=== PATIENT | male | born 1970 | race Caucasian/White ===

== ENCOUNTER 2022-08-27 11:08 | Inpatient (IN) | payer OTHER ==
[2022-08-27 11:16] VITALS: BMI 26.6
[2022-08-27] MEDS ORDERED: SODIUM CHLORIDE 0.9% 500 ML INFUS.BAG IV ONE (12:28)
[2022-08-27] MEDS ORDERED: ACETAMINOPHEN 1000 MG/100 ML BAG IVPB ONE (12:28)
[2022-08-27] MEDS ORDERED: FAMOTIDINE 20 MG/50 ML IVPB 20 MG/50 ML MG IVPB ONE (12:28)
[2022-08-27] MEDS ORDERED: ACETAMINOPHEN INJECTION 100 ML IVPB ONE ×2 (12:35→20:44)
[2022-08-27] MEDS ORDERED: FAMOTIDINE 10 MG/ML VIAL IVPB ONE (12:35)
[2022-08-27 12:52] LABS: BASO % 0.4 % (0-2.0); EOS % 1.6 % (0-4.5); HEMATOCRIT 42.7 % (35.4-49); HEMOGLOBIN 14.7 GM/dL (11.7-16.9); LYMPH % 29.2 % (8-40); MCH 30.1 pg (25.7-33.7); MCHC 34.3 g/dl (32.0-35.9); MEAN CELL VOLUME 87.7 fl (80-96); MEAN PLT VOLUME 10.7 fl (7.5-11.1); MONO % 8.6 % (3.8-10.2); NEUT % 60.2 % (42.8-82.8); PLATELET COUNT 184 10^3/uL (134-434); RBC 4.87 M/mm3 (4.00-5.60); RDW 12.9 % (11.9-15.9); WHITE BLOOD COUNT 6.8 K/mm3 (4.0-10.0)
[2022-08-27 12:54] LABS: URINE APPEARANCE CLEAR; URINE BILIRUBIN NEGATIVE (NEGATIVE); URINE COLOR YELLOW; URINE GLUCOSE (UA) NEGATIVE (NEGATIVE); URINE KETONE NEGATIVE (NEGATIVE); URINE LEUK ESTERASE NEGATIVE (NEGATIVE); URINE NITRITE NEGATIVE (NEGATIVE); URINE PROTEIN NEGATIVE (NEGATIVE); URINE UROBILINOGEN 0.2 mg/dL (0.2-1.0)
[2022-08-27 13:01] LABS: INR 1.2 (0.83-1.09); PROTHROMBIN TIME (PATIENT) 13.9 SEC (9.7-13.0)
[2022-08-27 13:03] LABS: ACTIVATED PTT 36.1 SECONDS (25.2-36.5)
[2022-08-27 13:05] LABS: POTASSIUM 4.7 mmol/L (3.5-5.1)
[2022-08-27 13:08] LABS: ALBUMIN 4.1 g/dl (3.4-5.0); CALCIUM 9.3 mg/dL (8.5-10.1)
[2022-08-27 13:09] LABS: BLOOD UREA NITROGEN 17.1 mg/dL (7-18)
[2022-08-27 13:13] LABS: BILIRUBIN,TOTAL 1.2 mg/dL (0.2-1); TOT PROT 7.5 g/dl (6.4-8.2)
[2022-08-27 17:52] LABS: URIC ACID 7.5 mg/dL (2.6-7.2)
[2022-08-27] MEDS ORDERED: TAMSULOSIN HCL 0.4 MG CAP PO SCH ×2 (18:45→20:18)
[2022-08-27] MEDS ORDERED: TAMSULOSIN HCL 0.4 MG CAP ONE (18:58)
[2022-08-27] MEDS: SODIUM CHLORIDE 1,000 ML IV SCH (19:03)
[2022-08-27] MEDS ORDERED: ACETAMINOPHEN 1000 MG/100 ML BAG IVPB PRN (20:17)
[2022-08-28 08:32] LABS: INR 1.27 (0.83-1.09); PROTHROMBIN TIME (PATIENT) 14.7 SEC (9.7-13.0)
[2022-08-28 08:36] LABS: BASO % 0.7 % (0-2.0); EOS % 2.3 % (0-4.5); HEMATOCRIT 37.7 % (35.4-49); HEMOGLOBIN 13.1 GM/dL (11.7-16.9); LYMPH % 30.2 % (8-40); MCH 30.2 pg (25.7-33.7); MCHC 34.8 g/dl (32.0-35.9); MEAN CELL VOLUME 86.9 fl (80-96); MONO % 9.9 % (3.8-10.2); NEUT % 56.9 % (42.8-82.8); PLATELET COUNT 170 10^3/uL (134-434); RBC 4.33 M/mm3 (4.00-5.60); RDW 12.7 % (11.9-15.9); WHITE BLOOD COUNT 6.1 K/mm3 (4.0-10.0)
[2022-08-28 08:48] LABS: POTASSIUM 4.1 mmol/L (3.5-5.1)
[2022-08-28 08:50] LABS: CALCIUM 8.7 mg/dL (8.5-10.1)
[2022-08-28 08:51] LABS: ALBUMIN 3.7 g/dl (3.4-5.0); BLOOD UREA NITROGEN 13.8 mg/dL (7-18)
[2022-08-28 08:53] LABS: MAGNESIUM 2.1 mg/dL (1.8-2.4); PHOSPHOROUS 2.7 mg/dL (2.5-4.9)
[2022-08-28 08:55] LABS: BILIRUBIN,TOTAL 1.2 mg/dL (0.2-1); TOT PROT 6.8 g/dl (6.4-8.2)
[2022-08-28] MEDS ORDERED: CEFTRIAXONE 1 GM in DEXTROSE 5%-WATER - 50 ML IVPB SCH (10:15)
[2022-08-28] MEDS: SODIUM CHLORIDE 1,000 ML IV SCH (10:38)
[2022-08-28] MEDS ORDERED: MIDAZOLAM HCL 2 MG/2 ML SINGLE DOSE VIAL ONE (14:46)
[2022-08-28] MEDS ORDERED: LIDOCAINE HCL 2% JELLY 11 ML TP ONE (14:59)
[2022-08-28] MEDS ORDERED: SODIUM CHLORIDE 1,000 ML IV SCH (16:10)
[2022-08-28] MEDS ORDERED: ACETAMINOPHEN 1000 MG/100 ML BAG IVPB PRN (16:10)
[2022-08-28] MEDS ORDERED: morphine SULFATE 4 MG/ML VIAL IVPUSH ONE (19:15)
[2022-08-29] MEDS: TAMSULOSIN HCL 0.4 MG CAP PO SCH (08:33)
[2022-08-29 09:23] LABS: BASO % 0.5 % (0-2.0); EOS % 1.6 % (0-4.5); HEMOGLOBIN 12.6 GM/dL (11.7-16.9); MCH 30.6 pg (25.7-33.7); MCHC 34.9 g/dl (32.0-35.9); MEAN CELL VOLUME 87.7 fl (80-96); MEAN PLT VOLUME 10.7 fl (7.5-11.1); MONO % 8.9 % (3.8-10.2); PLATELET COUNT 155 10^3/uL (134-434); WHITE BLOOD COUNT 5.7 K/mm3 (4.0-10.0)
[2022-08-29 09:42] LABS: POTASSIUM 4.3 mmol/L (3.5-5.1)
[2022-08-29 09:45] LABS: ALBUMIN 3.4 g/dl (3.4-5.0); BLOOD UREA NITROGEN 12.8 mg/dL (7-18)
[2022-08-29 09:46] LABS: CALCIUM 8.1 mg/dL (8.5-10.1)
[2022-08-29] MEDS: CEFTRIAXONE 1 GM in DEXTROSE 5%-WATER - 50 ML IVPB SCH (09:50)
[2022-08-29 09:53] LABS: MAGNESIUM 1.8 mg/dL (1.8-2.4)
[2022-08-29 09:54] LABS: PHOSPHOROUS 2.8 mg/dL (2.5-4.9)
[2022-08-29 09:55] LABS: BILIRUBIN,TOTAL 1.1 mg/dL (0.2-1); TOT PROT 6.3 g/dl (6.4-8.2)
[2022-08-29 09:57] LABS: CREATININE 0.9 mg/dL (0.55-1.3)
[2022-08-29] MEDS ORDERED: ACETAMINOPHEN 325 MG TABLET (FP) PO PRN (10:58)
[2022-08-30] MEDS: TAMSULOSIN HCL 0.4 MG CAP PO SCH (08:44)
[2022-08-30 09:12] LABS: HEMATOCRIT 41.7 % (35.4-49); HEMOGLOBIN 14.3 GM/dL (11.7-16.9); MCH 30.1 pg (25.7-33.7); MCHC 34.3 g/dl (32.0-35.9); MEAN CELL VOLUME 87.8 fl (80-96); MEAN PLT VOLUME 10.7 fl (7.5-11.1); PLATELET COUNT 185 10^3/uL (134-434); RBC 4.75 M/mm3 (4.00-5.60); RDW 12.8 % (11.9-15.9); WHITE BLOOD COUNT 6.6 K/mm3 (4.0-10.0)
[2022-08-30 09:24] LABS: POTASSIUM 4.1 mmol/L (3.5-5.1)
[2022-08-30 09:26] LABS: CALCIUM 9.2 mg/dL (8.5-10.1)
[2022-08-30 09:27] LABS: BLOOD UREA NITROGEN 10.5 mg/dL (7-18)
[2022-08-30 09:30] LABS: CREATININE 0.9 mg/dL (0.55-1.3)
[2022-08-30] MEDS: CEFTRIAXONE 1 GM in DEXTROSE 5%-WATER - 50 ML IVPB SCH (09:30)
[2022-08-30] MEDS: ENOXAPARIN NA (PORCINE) 40 MG/0.4 ML DISP.SYRIN SQ SCH (09:30)
[2022-08-30 09:32] LABS: BILIRUBIN,TOTAL 1.2 mg/dL (0.2-1); TOT PROT 7.2 g/dl (6.4-8.2)
[2022-08-30] MEDS ORDERED: oxyCODONE HCL 5 MG TABLET PO PRN (11:03)
[2022-08-30] MEDS ORDERED: ACETAMINOPHEN 500 MG TABLET (FP) PO PRN (11:04)
[2022-08-30] MEDS: oxyCODONE HCL 5 MG TABLET PO PRN ×2 (11:19→21:32)
[2022-08-30] MEDS: POLYETHYLENE GLYCOL (HEALTHYLAX) 3350 17 GM PACKET PO SCH (11:20)
[2022-08-30 14:18] VITALS: RESP 18
[2022-08-31] MEDS: oxyCODONE HCL 5 MG TABLET PO PRN (04:25)
[2022-08-31] MEDS: TAMSULOSIN HCL 0.4 MG CAP PO SCH (08:20)
[2022-08-31] MEDS ORDERED: BISACODYL 5 MG TABLET.DR (FP) PO ONE (09:11)
[2022-08-31] MEDS: POLYETHYLENE GLYCOL (HEALTHYLAX) 3350 17 GM PACKET PO SCH (09:25)
[2022-08-31] MEDS: ENOXAPARIN NA (PORCINE) 40 MG/0.4 ML DISP.SYRIN SQ SCH (09:25)
[2022-08-31] MEDS: CEFTRIAXONE 1 GM in DEXTROSE 5%-WATER - 50 ML IVPB SCH (09:26)
[2022-08-31] MEDS ORDERED: SENNOSIDES 8.6MG TABLET (FP) PO SCH ×2 (10:00→10:18)
[2022-08-31 15:45] VITALS: BP 126/76; PULSE 70; TEMP 98
== END 2022-08-31 16:26 | disposition home health service (06) | DRG 465 ==
LOC: JER 11:08 → UNDOADMOB 14:37 → JERBED 14:37 → INTOOBSV 14:37 → JERBED 16:53 → J6S 23:04 → OBSVTOIN 08-30 11:22
PROVIDERS: ADMIT Internal Medicine; ATTEND Internal Medicine
PROC: 0T768DZ Dilation of Right Ureter with Intraluminal Device, Via Natural or Artificial Opening Endoscopic (ICD-10-PCS; principal; 2022-08-28 13:30)
PROC: 0TF68ZZ Fragmentation in Right Ureter, Via Natural or Artificial Opening Endoscopic (ICD-10-PCS; 2022-08-28 13:30)
DX: N13.2 Hydronephrosis with renal and ureteral calculous obstruction (principal); I49.8 Other specified cardiac arrhythmias; R33.8 Other retention of urine; K59.03 Drug induced constipation; T40.2X5A Adverse effect of other opioids, initial encounter
CPT/HCPCS: 36415; 71046-TC-FY; 74019-TC-FY; 74177-TC; 76000-TC-FY; 80053; 81003; 83690; 83735; 84100; 84550; 85025; 85027; 85610; 85730; 86900; 87086; 93005; 93010; 94760; 99285-25; C1758; C1894; C2617; C9803-CS; G0378; Q9967; U0003; U0005

== ENCOUNTER 2022-09-08 03:41 | Day surgery (SDC) | payer OTHER ==
[2022-09-03 15:22] VITALS: BMI 26.5
[2022-09-08 06:45] VITALS: RESP 16
[2022-09-08] MEDS ORDERED: PROPOFOL 20 ML ONE (08:48)
[2022-09-08] MEDS ORDERED: MIDAZOLAM HCL 2 MG/2 ML SINGLE DOSE VIAL ONE (08:48)
[2022-09-08] MEDS ORDERED: KETOROLAC TROMETHAMINE 30 MG/1 ML VIAL ONE (09:14)
[2022-09-08 09:33] VITALS: TEMP 96.9
[2022-09-08 09:50] VITALS: BP 106/72
[2022-09-08 12:50] VITALS: PULSE 52
== END 2022-09-08 12:51 | disposition home or self-care (01) ==
LOC: JASU-SURG 03:41
PROVIDERS: ATTEND Urology
PROC: 0TF3XZZ Fragmentation in Right Kidney Pelvis, External Approach (ICD-10-PCS; principal; 2022-09-08 08:30)
DX: N20.0 Calculus of kidney (principal)

== ENCOUNTER 2022-09-21 04:11 | Day surgery (SDC) | payer OTHER ==
[2022-09-17 14:03] VITALS: BMI 26.5
[2022-09-21] MEDS ORDERED: MIDAZOLAM HCL 2 MG/2 ML SINGLE DOSE VIAL ONE ×2 (12:46→13:03)
[2022-09-21] MEDS ORDERED: PROPOFOL 20 ML ONE (12:46)
[2022-09-21] MEDS ORDERED: ceFAZolin SODIUM 1 GM VIAL IVPB ONE (13:00)
[2022-09-21] MEDS ORDERED: ceFAZolin SODIUM 1 GM VIAL ONE (13:08)
[2022-09-21] MEDS ORDERED: LIDOCAINE HCL 1%, 10 MG/ML (10ML VIAL) MDV ONE (13:11)
[2022-09-21] MEDS ORDERED: DEXAMETHASONE SOD PHOSPHATE 4 MG/1 ML VIAL ONE (13:16)
[2022-09-21] MEDS ORDERED: ONDANSETRON 4 MG/2 ML VIAL ONE (13:16)
[2022-09-21] MEDS ORDERED: oxyCODONE HCL 5 MG TABLET PO PRN (14:19)
[2022-09-21] MEDS ORDERED: ONDANSETRON 4 MG/2 ML VIAL IVPUSH PRN (14:19)
[2022-09-21] MEDS ORDERED: LACTATED RINGERS SOLUTION 1,000 ML IV SCH (14:30)
[2022-09-21] MEDS ORDERED: oxyCODONE HCL 5 MG TABLET ONE (15:19)
[2022-09-21 15:32] VITALS: RESP 18; TEMP 97.8
[2022-09-21 16:49] VITALS: BP 117/70; PULSE 64
== END 2022-09-21 16:30 | disposition home or self-care (01) ==
LOC: JASU-SURG 04:11
PROVIDERS: ATTEND Urology
PROC: 0TPD8DZ Removal of Intraluminal Device from Urethra, Via Natural or Artificial Opening Endoscopic (ICD-10-PCS; principal; 2022-09-21 13:00)
DX: N20.0 Calculus of kidney (principal)
CPT/HCPCS: 88300-TC; 94760; C1894

== ENCOUNTER 2024-05-25 10:09 | Emergency (ER) | payer OTHER ==
[2024-05-25] MEDS ORDERED: METHOCARBAMOL 500 MG TABLET ONE (11:13)
[2024-05-25] MEDS ORDERED: KETOROLAC TROMETHAMINE 30 MG/1 ML VIAL ONE (11:13)
[2024-05-25] MEDS ORDERED: ACETAMINOPHEN 500 MG TABLET (FP) ONE (11:13)
[2024-05-25] MEDS: METHOCARBAMOL 500 MG TABLET PO ONE (11:23)
[2024-05-25] MEDS: KETOROLAC TROMETHAMINE 30 MG/1 ML VIAL IM ONE (11:23)
[2024-05-25] MEDS: ACETAMINOPHEN 500 MG TABLET (FP) PO ONE (11:24)
[2024-05-25 11:57] LABS: PH,URINE 5.5 (5.0-8.0); URINE APPEARANCE CLEAR; URINE BILIRUBIN NEGATIVE (NEGATIVE); URINE COLOR YELLOW; URINE GLUCOSE (UA) NEGATIVE (NEGATIVE); URINE KETONE TRACE (NEGATIVE); URINE LEUK ESTERASE NEGATIVE (NEGATIVE); URINE NITRITE NEGATIVE (NEGATIVE); URINE PROTEIN NEGATIVE (NEGATIVE); URINE UROBILINOGEN 0.2 mg/dL (0.2-1.0)
[2024-05-25 12:36] VITALS: BP 131/80; PULSE 83; RESP 18; TEMP 98; BMI 27.2
== END 2024-05-25 13:55 | disposition home or self-care (01) ==
LOC: JER 10:09
PROC: 3E0233Z Introduction of Anti-inflammatory into Muscle, Percutaneous Approach (ICD-10-PCS; principal; 2024-05-25)
DX: M62.830 Muscle spasm of back (principal); M54.50 Low back pain, unspecified; Z20.822 Contact with and (suspected) exposure to COVID-19
CPT/HCPCS: 0241U-QW; 72070-TC-FY; 72100-TC-FY; 81003; 87086; 99284-25

== ENCOUNTER 2025-01-23 12:12 | Emergency (ER) | payer OTHER ==
[2025-01-23 12:21] VITALS: BP 108/79; PULSE 62; RESP 18; TEMP 98; BMI 28.0
[2025-01-23] MEDS ORDERED: ACETAMINOPHEN INJECTION 100 ML ONE (14:11)
[2025-01-23] MEDS: SODIUM CHLORIDE 0.9% 500 ML INFUS.BAG IV ONE (14:15)
[2025-01-23] MEDS: ACETAMINOPHEN 1000 MG/100 ML BAG IVPB ONE (14:15)
[2025-01-23 14:27] LABS: URINE APPEARANCE CLEAR; URINE BILIRUBIN NEGATIVE (NEGATIVE); URINE COLOR YELLOW; URINE GLUCOSE (UA) NEGATIVE (NEGATIVE); URINE KETONE NEGATIVE (NEGATIVE); URINE LEUK ESTERASE NEGATIVE (NEGATIVE); URINE NITRITE NEGATIVE (NEGATIVE); URINE PROTEIN NEGATIVE (NEGATIVE); URINE UROBILINOGEN 0.2 mg/dL (0.2-1.0)
[2025-01-23 14:32] LABS: ABSOLUTE IMMATURE GRANULOCYTES 0.02 x10^3/uL (0.0-0.031); BASOPHILS # 0.04 x10^3/uL (0.01-0.08); EOSINOPHIL % 1.9 % (0.8-7.0); EOSINOPHILS # 0.13 x10^3/uL (0.04-0.54); MCHC 31.9 g/dl (32.3-36.5); MEAN CELL VOLUME 91.1 fl (79.0-92.2); MEAN PLT VOLUME 11.6 fl (9.4-12.4); MONOCYTE # 0.65 x10^3/uL (0.30-0.82); MONOCYTE % 9.5 % (5.3-12.2); RDW 12.5 % (12.2-16.1)
[2025-01-23 14:48] LABS: GLUCOSE,RANDOM 94.0 mg/dL (74-106); TOT PROT 7.6 g/dl (6.4-8.2)
[2025-01-23 14:49] LABS: CO2 25.0 mmol/L (21-32)
[2025-01-23 14:50] LABS: ALK PHOS 103.0 U/L (40-150)
[2025-01-23 14:53] LABS: CREATININE 0.84 mg/dL (0.55-1.3); SGOT/AST 18.0 U/L (5-34); SGPT/ALT 23.0 U/L (0-55)
[2025-01-23 15:14] LABS: HCV DIAGNOSTIC IN-HOUSE W/RFLX NON-REACTIVE (NONREACTIVE); HIV INTERPRETATION NEGATIVE (NEGATIVE)
== END 2025-01-23 15:36 | disposition home or self-care (01) ==
LOC: JER 12:12
PROC: 3E033NZ Introduction of Analgesics, Hypnotics, Sedatives into Peripheral Vein, Percutaneous Approach (ICD-10-PCS; principal; 2025-01-23)
DX: M54.50 Low back pain, unspecified (principal)
CPT/HCPCS: 36415; 74176-TC; 80053; 81003; 85025; 86803; 87086; 87389; 96374; 99285-25